=== PATIENT | male | born 2000 | race African-American/Black ===

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

== ENCOUNTER 2019-03-10 18:01 | Emergency (ER) | payer OTHER ==
[~2019-03-10] VITALS: Ht 182.9 cm; Wt 87.1 kg
[2019-03-10 18:06] VITALS: Ht 182.9 cm; Wt 87.1 kg
[2019-03-10 20:09] VITALS: BP 143/72
== END 2019-03-10 20:09 | disposition home or self-care (01) ==
LOC: ED 18:01
DX: J03.90 Acute tonsillitis, unspecified (principal); Z90.49 Acquired absence of other specified parts of digestive tract
CPT/HCPCS: J0561; J1100